=== PATIENT | female | born 1980 | race Caucasian/White ===

== ENCOUNTER 2020-02-22 12:13 | Emergency (ER) | payer OTHER, SELFPAY ==
--- NOTE | 2020-02-22 13:05 | XR_ITS ---
EXAMINATION: XR KNEE, LEFT CLINICAL INFORMATION: Left knee pain. COMPARISON: 12/28/15. TECHNIQUE: Four views of the left knee. FINDINGS: Bones and soft tissues are normal. No fracture or joint effusion. Alignment is anatomic. Joint spaces are well maintained. No abnormal soft tissue calcification. XR/XR knee LT 4V IMPRESSION: Normal left knee.
[2020-02-22 13:12] VITALS: BP 147/80; PULSE 81; RESP 16; TEMP 36.7; O2SAT 100
--- NOTE | 2020-02-22 13:18 | ED_ITS ---
HPI - Extremity Injury (Lower) General Chief Complaint: Extremity Injury, Lower Stated Complaint: knee pain Time Seen by Provider: 02/22/20 12:54 Source: patient Mode of arrival: ambulatory History of Present Illness HPI Narrative: 39-year-old female past medical history of hypertension on metoprolol presenting to emergency department with left knee pain since yesterday. Patient states she was caring a load of laundry down her cellar [address] [place] when she missed the last step and her body and knee twisted. She did hit the wall with denies falling down otherwise. She denies head injury or LOC. He states he has been elevating and icing her leg but continues to have pain. She took Motrin this morning. She states she feels a pulsating pain in her knee. Pain is mostly to the lateral aspect of her anterior knee. She denies previous symptoms. She denies history of DVT. She is able to ambulate but with a limping gait. Onset (ago): day(s) (1) Related Data Previous Rx's Medication Instructions Recorded ibuprofen 600 mg PO Q6H PRN 5 Days #20 tab 02/22/20 Allergies Allergy/AdvReac Type Severity Reaction Status Date / Time levofloxacin [From LEVAQUIN] Allergy Unknown HIVES Unverified 11/07/19 15:11 morphine [MORPHINE] Allergy Unknown NAUSEA & Unverified 11/07/19 15:11 VOMITING Lavoclen-4 Allergy Unknown Uncoded 03/23/11 00:00 Lavoclen-4 Acne Wash Allergy Unknown Uncoded 01/20/16 00:00 morphine sulfate Allergy Unknown Uncoded 03/23/11 00:00 Review of Systems Constitutional: Constitutional: Denies fever(s) and Denies frequent falls Eyes: Eyes: Reports no additional eye complaints ENT: Denies dizziness and Denies sore throat Cardiovascular: Cardiovascular: Denies dyspnea Respiratory: Respiratory: Denies dyspnea Gastrointestinal: Gastrointestinal: Denies abdominal pain and Denies vomiting Genitourinary: Genitourinary: Reports no additional female genitourinary complaints Comments: No urinary complaints Musculoskeletal: Comments: Left knee pain Neurologic: Denies dizziness and Denies frequent falls Hematologic/Lymphatic: Hematologic/Lymphatic: Denies easy bleeding Allergic/Immunologic: Allergic/Immunologic: Reports no additional allergic/immunologic complaints PMFSH Past Medical History Medical History HTN (hypertension) Surgical History Delivery by section Social History Social History (Updated 02/22/20 @ 13:21 by STERLING Conrad) Smoking Status: Never smoker Advance Directives: No Advance Directives Information Provided: No Physical Exam Vital Signs: Vital Signs: Last Vital Signs Temp 98.1 F 02/22/20 13:12 Pulse 81 02/22/20 13:12 Resp 16 02/22/20 13:12 BP 147/80 H 02/22/20 13:12 Pulse Ox 100 02/22/20 13:12 Body Mass Index 30.0 Const: Other: Sitting upright in the stretcher Orientation/consciousness: patient oriented x3 HENMT: Head: Yes atraumatic Eyes: Pupils: Equal, round and reactive pupils present Neck: Neck: Yes trachea midline and Yes supple Resp: Effort & Inspection: normal respiratory effort and able to speak in complete sentences Cardio: Rate: regular rate GI: Inspection: No distended Back/Spine/Pelvis: Other: Normal range of motion Skin: Other: Warm and intact Neuro: General: patient oriented x3 Cranial nerves: Yes Equal, round and reactive pupils present Extrem: Other: Left lower extremity-positive pedal pulses, full range of motion of digits, ankle, hip, limited range of motion of the knee secondary to pain but is able to flex and fully extend otherwise, no significant swelling noted some ecchymosis noted to the superior aspect of her anterior knee, no calf tenderness or swelling, no erythema or warmth, no rashes or lesions, no fluctuance, compartment soft, neurovascularly intact Psych: Appearance: well kempt Course Course Course Narrative: Xray negative. WIll give knee immobilizer, crutches and ortho follow up. Continue NSAIDs for pain. Return precautions will be provided. MDM - Extremity Injury (Lower) MDM Narrative Medical decision making narrative: 39-year-old female presenting to emergency department with knee pain Vital stable, nontoxic appearing, hemodynamically stable Will plan for plain film of her knee to rule out underlying bony injury. She has no evidence of compartment syndrome. No erythema or warmth to suggest septic joint or gout. She has prominent necrotizing fasciitis. Low concern for DVT as her limbs are symmetrical and she does not have calf swelling or tenderness. No evidence of tendon rupture. She could have a ligamentous strain. Since she took Motrin this morning will give her Tylenol in the ER as she is driving home do not want to give her narcotics. Discharge Plan Discharge Clinical Impression: Left knee sprain Patient Disposition: Home, Self-Care Instructions: Knee Sprain (ED), R.I.C.E. Treatment (ED) Additional Instructions: Your xray is normal. Please return to the emergency department if her symptoms worsen, worsening pain, leg swelling, calf pain, difficulty walking, numbness, weakness, loss of balance, or any other concerning symptoms. Please follow-up with orthopedist in a week if your symptoms do not improve. you may use the knee immobilizer when moving around, when you are at home remove it and elevate your leg, place ice to help with the pain. Use crutches for weight-bearing as tolerated. you may continue taking Tylenol and Motrin for pain every 6 hours as directed. Prescriptions: New ibuprofen 600 mg tablet 600 mg PO Q6H PRN (Reason: pain) 5 Days Qty: 20 RF: 0 Referrals: Rafa Vaca MD [Physician] - 1 week Interventions: ED Discharge Assessment Last Done: 02/22/20 14:35 Discharge Date/Time: 02/22/20 14:25
[2020-02-22] MEDS: Acetaminophen 325 MG TABLET 650 MG PO (13:25)
== END 2020-02-22 14:25 | disposition home or self-care (01) ==
PROVIDERS: Emergency Provider Emergency Medicine; PCP Internal Medicine
DX: S83.92XA Sprain of unspecified site of left knee, initial encounter (principal); X50.1XXA Overexertion from prolonged static or awkward postures, initial encounter; I10 Essential (primary) hypertension; Y93.E2 Activity, laundry; Y92.018 Other place in single-family (private) house as the place of occurrence of the external cause; Y99.9 Unspecified external cause status
CPT/HCPCS: 73564; 99283

== ENCOUNTER 2020-02-24 08:30 | Outpatient (REF) | payer OTHER, SELFPAY ==
[2020-02-24 08:50] LABS: COVID-19 Test Negative (Negative)
== END 2020-02-24 08:31 | disposition home or self-care (01) ==
LOC: HO.EMPCOV 08:30
PROVIDERS: Visit Provider Internal Medicine
DX: Z20.822 Contact with and (suspected) exposure to COVID-19 (principal)
CPT/HCPCS: 36415; 87635; C9803

== ENCOUNTER 2020-02-27 10:19 | Outpatient (REF) | payer OTHER, SELFPAY ==
[2020-02-27 10:36] LABS: COVID-19 Test Negative (Negative)
== END 2020-02-27 10:20 | disposition home or self-care (01) ==
LOC: HO.EMPCOV 10:19
PROVIDERS: Visit Provider Internal Medicine
DX: Z20.828 Contact with and (suspected) exposure to other viral communicable diseases (principal)
CPT/HCPCS: 36415; 87635; C9803

== ENCOUNTER 2021-04-13 16:02 | Outpatient (REF) | payer OTHER, SELFPAY ==
--- NOTE | ~2021-04-13 | MM_ITS ---
EXAMINATION: MM SCREENING DIGITAL BREAST TOMOSYNTHESIS, BILATERAL CLINICAL INFORMATION: Screening. Asymptomatic. Age 41. No known family history breast cancer. The lifetime risk of breast cancer based on the Tyrer-Cuzick Model is 8%. COMPARISON: Mammography: 03/02/2011 (baseline). TECHNIQUE: Digital breast tomosynthesis is performed in both the craniocaudal and mediolateral oblique views along with computer-aided detection (CAD). Synthesized 2D images are generated from the tomosynthesis. FINDINGS: There are scattered areas of fibroglandular density (ACR BI-RADS breast composition Category b). There are no significant masses, abnormal calcifications, or other abnormalities. There is no significant change from remote prior exam. The axilla and skin contours are unremarkable. MM/MM tomosynthesis screening BI IMPRESSION: No mammographic evidence of malignancy. ASSESSMENT: BI-RADS 1: Negative RECOMMENDATION: Routine annual mammography screening. This patient's information was entered into a reminder system with a target due date for their next mammogram.
== END 2021-04-13 16:03 | disposition home or self-care (01) ==
LOC: HO.MAMMO 16:02
PROVIDERS: Visit Provider Internal Medicine
DX: Z12.31 Encounter for screening mammogram for malignant neoplasm of breast (principal)
CPT/HCPCS: 77063; 77067

== ENCOUNTER 2022-01-18 14:28 | Outpatient (REF) | payer OTHER, SELFPAY ==
[2022-01-19 10:23] LABS: BV Int Neg Control Negative (Negative); BV Int Pos Control Positive (Positive)
[2022-01-19 11:04] LABS: CT PCR NOT DETECTED (Not Detect.); NG PCR NOT DETECTED (Not Detect.)
[2022-01-20 19:59] LABS: HPV mRNA E6/E7 rflx Not Detected (Not Detected)
== END 2022-01-18 14:29 | disposition home or self-care (01) ==
LOC: HO.LNP 14:28
PROVIDERS: Visit Provider Advanced Practice Midwife
DX: Z01.419 Encounter for gynecological examination (general) (routine) without abnormal findings (principal)
CPT/HCPCS: 87480; 87491; 87510; 87591; 87624; 87660; 88142

== ENCOUNTER 2022-08-04 14:17 | Outpatient (REF) | payer OTHER, SELFPAY ==
--- NOTE | ~2022-08-04 | XR_ITS ---
EXAMINATION: XR KNEE, LEFT CLINICAL INFORMATION: Left knee pain. COMPARISON: None available. TECHNIQUE: Four views of the left knee. FINDINGS: Bones and soft tissues are normal. No fracture or joint effusion. Alignment is anatomic. Joint spaces are well maintained. No abnormal soft tissue calcification. XR/XR knee LT 4V IMPRESSION: Normal left knee.
== END 2022-08-04 14:18 | disposition home or self-care (01) ==
LOC: HO.XRAY 14:17
PROVIDERS: PCP Internal Medicine; Visit Provider Internal Medicine
DX: M25.562 Pain in left knee (principal)
CPT/HCPCS: 73564

== ENCOUNTER 2022-09-22 09:36 | Outpatient (AMB) | payer OTHER, SELFPAY ==
--- NOTE | 2022-09-22 09:37 | MHC.OFFVIS ---
Intake Vital Signs 09/22/22 09:38 Height 5 ft 4 in Weight 197 lb 6 oz BMI 33.9 BP 128/82 Blood Pressure Location Lt brachial Position Sitting Intake Visit Reasons: Vaginal lump Allergies levofloxacin [From LEVAQUIN] Allergy (Unknown, Verified 09/22/22 09:39) HIVES morphine [MORPHINE] Allergy (Unknown, Verified 09/22/22 09:39) NAUSEA & VOMITING Lavoclen-4 Allergy (Unknown, Uncoded 09/22/22 09:39) Unknown Lavoclen-4 Acne Wash Allergy (Unknown, Uncoded 09/22/22 09:39) Unknown morphine sulfate Allergy (Unknown, Uncoded 09/22/22 09:39) Unknown Medication List - Last Reconciled 09/22/22 by Lizbeth Campbell CNM ibuprofen 600 mg PO Q6H PRN 5 days metoprolol succinate ER 25 mg PO DAILY sertraline 50 mg PO DAILY tramadol 50 mg PO Q4H PRN Is last menstrual period known: Yes Last menstrual period: 09/19/22 HPI Vaginal lump HPI Details Patient is here to check out a vaginal lump that she has had for about 4 weeks. It isn't particularly painful it was not there before she is not worried about STDs it is not draining. She does normally do waxing but she did not be recently because of this. She can not think of any particular irritation and does not think she cut herself with toilet paper or anything like that. [facility] Medical History Anxiety HTN (hypertension) Surgical History Delivery by section History of endometrial ablation Hx of cholecystectomy Social History Alcohol intake: current Alcohol intake frequency: holidays/special occasions only Patient Tobacco Use Status: Never used Tobacco Female Reproductive History Menstrual Age of Menarche: 12 Duration of menses: 3-5 days Date of last menstrual period: 09/19/22 control method: none Total pregnancies: 4 Full term: 3 Ab spontaneous: 1 Date of last pap smear: 01/19/22 History of abnormal pap smear: Yes History of STI: No Physical Exam Vital Signs: Last Vital Signs BP 128/82 09/22/22 09:38 BMI result Body Mass Index 33.9 Other: External exam of full the no obvious lesions subcutaneously on left labia majora there is a pea-sized swelling that is somewhat fluctuant and when the superficial tissue is moved it is made clear that the cyst underneath is somewhat fluid filled and occasionally blanches if the skin as the skin is moved in occasionally reddened so. It is consistent with an inflamed hair follicle though it does not appear to be infected and is nontender. Discussed the common experience of folliculitis due to introduction of bacteria along the hair follicle. I recommend trying not to irritated or squeeze it but use warm soaks and if it does become very inflamed and infected she may need a course of antibiotics but hopefully that will not happen. If it does pop I recommend gentle cleansing with half-strength hydrogen peroxide and perhaps a little dab of triple antibiotic appointment. I do not think it is of major concern and is a common folliculitis that is not currently infected but more indolent. She is welcome to a follow-up appointment with 1 of the other providers to would be able to do a biopsy if it was still present in about a month so she may schedule that. I showed it to her with a mirror and explained why I thought that was just irritation of the hair follicle. Assessment & Plan Assessment & Plan (1) Folliculitis: Code(s): L73.9 - Follicular disorder, unspecified Plan External exam of full the no obvious lesions subcutaneously on left labia majora there is a pea-sized swelling that is somewhat fluctuant and when the superficial tissue is moved it is made clear that the cyst underneath is somewhat fluid filled and occasionally blanches if the skin as the skin is moved in occasionally reddened so. It is consistent with an inflamed hair follicle though it does not appear to be infected and is nontender. Discussed the common experience of folliculitis due to introduction of bacteria along the hair follicle. I recommend trying not to irritated or squeeze it but use warm soaks and if it does become very inflamed and infected she may need a course of antibiotics but hopefully that will not happen. If it does pop I recommend gentle cleansing with half-strength hydrogen peroxide and perhaps a little dab of triple antibiotic appointment. I do not think it is of major concern and is a common folliculitis that is not currently infected but more indolent. She is welcome to a follow-up appointment with 1 of the other providers to would be able to do a biopsy if it was still present in about a month so she may schedule that. I showed it to her with a mirror and explained why I thought that was just irritation of the hair follicle. Coding Level of Care Code Est Pt Level 3 (44249) Diagnoses Folliculitis L73.9
[2022-09-22 09:38] VITALS: BP 128/82; BMI 33.9
--- OUTSIDE RECORDS SUMMARY | 2022-09-22 09:39 | XMS_ITS | Continuity of Care Document ---
Author Name Unknown Organization [facility] Address [address] [place] [address], [address] [place] [address]- Care Team Providers Care Combat Systems Operator Mine Warfare Name Role Phone Nilson Smith MD Primary Care Physician Encounter [facility] Date(s): 04/15/21 - 04/22/21 [facility] [address] [place] [address], [address] [place], [place] [address] Attending Physician: Bri Birch MD Referring Physician: Nilson Smith MD
--- OUTSIDE RECORDS SUMMARY | 2022-09-22 09:39 | XMS_ITS | Continuity of Care Document ---
Author Name Unknown Organization [facility] Address [address] [place] [address], [address] [place] [address]- Care Team Providers Care Shanker Out Name Role Phone Nilson Smith MD Primary Care Physician Encounter [facility] Date(s): 04/15/21 - 05/15/21 [facility] [address] [place] [address], [address] [place], [place] [address] Attending Physician: Jeb Ly Admitting Physician: Jeb Ly Referring Physician: Jeb Ly
--- OUTSIDE RECORDS SUMMARY | 2022-09-22 09:39 | XMS_ITS | Continuity of Care Document ---
Author Name Unknown Organization [facility] Address [address] [place] [address], [address] [place] [address]- Care Team Providers Care Camper Assembler Name Role Phone Nilson Smith MD Primary Care Physician Encounter [facility] Date(s): 03/30/21 - 04/29/21 [facility] [address] [place] [address], [address] [place], [place] [address]
== END 2022-09-22 14:14 | disposition home or self-care (01) ==
LOC: HO.HWSM 09:36
PROVIDERS: PCP Internal Medicine; Visit Provider Advanced Practice Midwife
DX: L73.9 Follicular disorder, unspecified (principal)
CPT/HCPCS: 99213

== ENCOUNTER → 2022-09-22 09:36 | Outpatient (BNVA) | payer OTHER, SELFPAY | PROVIDERS: PCP Internal Medicine; Visit Provider Advanced Practice Midwife ==

== ENCOUNTER 2023-04-12 13:38 | Outpatient (REF) | payer OTHER, SELFPAY ==
--- NOTE | ~2023-04-12 | MM_ITS ---
EXAMINATION: MM SCREENING DIGITAL BREAST TOMOSYNTHESIS, BILATERAL CLINICAL INFORMATION: Screening. Asymptomatic. COMPARISON: Mammography: This study is compared with prior exams dating back to 2012. TECHNIQUE: Digital breast tomosynthesis is performed in both the craniocaudal and mediolateral oblique views along with computer-aided detection (CAD). Synthesized 2D images are generated from the tomosynthesis. FINDINGS: The breasts are heterogeneously dense, which may obscure small masses (ACR BI-RADS breast composition Category c). There are no significant masses, abnormal calcifications, or other abnormalities. MM/MM tomosynthesis screening BI IMPRESSION: No mammographic evidence of malignancy. ASSESSMENT: BI-RADS BI-RADS 1 - Negative RECOMMENDATION: Routine annual mammography screening. 1 year F/U This examination should not preclude the clinical evaluation of a suspicious palpable abnormality. This patient's information was entered into a reminder system with a target due date for their next mammogram.
== END 2023-04-12 13:39 | disposition home or self-care (01) ==
LOC: HO.MAMMO 13:38
PROVIDERS: PCP Internal Medicine; Visit Provider Internal Medicine
DX: Z12.31 Encounter for screening mammogram for malignant neoplasm of breast (principal)
CPT/HCPCS: 77063; 77067

== ENCOUNTER → 2023-04-12 13:45 | Outpatient (BNV) | payer OTHER, SELFPAY | PROVIDERS: PCP Internal Medicine; Visit Provider Radiology Diagnostic Radiology | DX: Z12.31 Encounter for screening mammogram for malignant neoplasm of breast (principal) | CPT/HCPCS: 77063; 77067 ==

== ENCOUNTER 2024-01-15 13:08 | Outpatient (REF) | payer OTHER, SELFPAY ==
[2024-01-15 13:25] LABS: MANUAL DIFF FLAG NO
[2024-01-15 14:07] LABS: Basophils Percent Auto 0.4 % (0-2); Eosinophils Absolute Auto 0.1 X10*3/uL (0.0-0.4); Eosinophils Percent Auto 1.5 % (0-4); Hematocrit 38.7 % (37.0-47.0); Hemoglobin 13.2 g/dl (12.0-16.0); Imm Gran Abs Auto 0.01 X10*3/uL (0.00-0.03); Imm Gran Pct Auto 0.1 % (0.0-0.4); Lymphocytes Absolute Auto 1.4 X10*3/uL (1.2-4.9); Lymphocytes Percent Auto 19.6 % (20-40); Mean Corpuscular HGB Conc 34.1 g/dl (31.0-35.0); Mean Corpuscular Hemoglobin 29.9 pg (27.0-33.0); Mean Corpuscular Volume 87.6 fL (80.0-98.0); Mean Platelet Volume 8.8 fL (9.4-12.3); Monocytes Absolute Auto 0.4 X10*3/uL (0.1-1.2); Monocytes Percent Auto 5.9 % (2-11); Neutrophils Absolute Auto 5.3 x10*3/uL (2.0-8.3); Neutrophils Percent Auto 72.5 % (45-73); Platelet Count 295 X10*3/uL (160-400); Red Blood Count 4.42 X10*6/uL (4.20-5.50); Red Cell Distribution Width 11.9 % (11.0-16.0); White Blood Count 7.3 X10*3/uL (4.8-10.8)
[2024-01-15 15:08] LABS: Alanine Aminotransferase 11 U/L (0-31); Albumin Level 3.9 g/dL (3.5-5.0); Anion Gap 15 (12-20); Aspartate Amino Transferase 18 U/L (5-31); Bilirubin Total 0.5 mg/dL (0.0-1.0); Blood Urea Nitrogen 14 mg/dL (9-16); Calcium 9.3 mg/dL (8.4-10.2); Carbon Dioxide 20 mmol/L (22-29); Chloride 107 mmol/L (96-108); Cholesterol 192 mg/dL (<200); Estimated Glomerular Filt Rate > 60; Glucose Random 98 mg/dL (60-115); HDL Cholesterol 52 mg/dL (>40); LDL Cholesterol Calculated 118 mg/dL (<100); Potassium 3.8 mmol/L (3.3-5.1); Sodium 138 mmol/L (135-145); Total Protein 7.2 g/dL (6.5-8.0); Triglycerides 112 mg/dL (<150)
[2024-01-15 15:50] LABS: Alkaline Phosphatase 94 U/L (39-117)
== END 2024-01-15 13:09 | disposition home or self-care (01) ==
LOC: HO.LAB 13:08
PROVIDERS: PCP Internal Medicine; Visit Provider Internal Medicine
DX: E78.2 Mixed hyperlipidemia (principal); I10 Essential (primary) hypertension
CPT/HCPCS: 36415; 80053; 80061; 85025

== ENCOUNTER → 2024-04-18 13:30 | Outpatient (BNV) | payer OTHER, SELFPAY | PROVIDERS: PCP Internal Medicine; Visit Provider Internal Medicine | DX: Z12.31 Encounter for screening mammogram for malignant neoplasm of breast (principal) | CPT/HCPCS: 77063; 77067 ==

== ENCOUNTER 2024-04-18 13:40 | Outpatient (REF) | payer OTHER, SELFPAY ==
--- OUTSIDE RECORDS SUMMARY | 2024-04-18 16:26 | XMS_ITS | Clinical Summary ---
Author Organization [address] Address [address] [place] [phone] Phone Care Team Providers Care Blow Molder Name Role Phone Unavailable Primary Care Provider Unavailabl e Social History Tobacco Use Types Packs/Day Years Used Date Smoking Tobacco: Never Assessed Comments Unknown Sex and Gender Information Value Date Recorded Sex Assigned at Not on file Legal Sex Female 9:35 AM EST Gender Identity Not on file Sexual Orientation Not on file Last Filed Vital Signs Vital Sign Reading Time Taken Comments Blood Pressure 101/64 06/06/2023 1:11 PM EDT Pulse 66 06/06/2023 1:11 PM EDT Temperature - - Respiratory Rate - - Oxygen Saturation - - Inhaled Oxygen Concentration - - Weight 85.3 kg (188 lb) 06/06/2023 1:11 PM EDT Height 157.5 cm (5' 2 ) 06/06/2023 1:11 PM EDT Body Mass Index 34.39 06/06/2023 1:11 PM EDT Plan of Treatment Health Maintenance Due Date Last Done Comments Breast Cancer Screening 1980 DTaP,Tdap,and Td Vaccines (1 - Tdap) 1999 Hepatitis B Vaccines (1 of 3 - 19+ 3-dose series) 1999 Cervical Cancer Screening: P ap Smear 2001 COVID-19 Vaccine ( - 2023-2 5 season) 2023 Influenza Vaccine (#1) 2023 Depression Screening 01/16/2024 HIV Screening 01/16/2024 Hepatitis C Screening 01/16/2024 Social Influencers of Health Screening 01/16/2024 HIB Vaccines Aged Out No longer eligi ble based on patient's age to complete this topic HPV Vaccines Aged Out No longer eligi ble based on patient's age to complete this topic Hepatitis A Vaccines Aged Out No long er eligible based on patient's age to complete this topic IPV Vaccines Aged Out No longer eligi ble based on patient's age to complete this topic MMR Vaccines Aged Out No longer eligi ble based on patient's age to complete this topic Meningococcal ACWY Vaccine Aged Out N o longer eligible based on patient's age to complete this topic Meningococcal B Vacine Aged Out No lo nger eligible based on patient's age to complete this topic Pneumococcal Vaccine: Pediat rics (0 to 5 Years) and At-Risk Patients (6 to 64 Years) Aged Out No longer eligible b ased on patient's age to complete this topic RSV Immunization Patients Un josep 20 months Aged Out No longer eligible b ased on patient's age to complete this topic Varicella Vaccines Aged Out No longer eligible based on patient's age to complete this topic Insurance
--- OUTSIDE RECORDS SUMMARY | 2024-04-18 16:26 | XMS_ITS | Patient Health Record ---
Author Organization [facility] Address [address] [place] [address] Care Team Providers Care Gas Load Dispatcher Name Role Phone Nilson Smith MD Primary Care Provider UnavailBaljit Salamanca Unavailable [phone] Allergies Allergen (clinical drug ingredient) Drug/Non Drug Allergy documented on EMR Reaction Allergy Type Onset Date Status ciprofloxacin Cipro Unknown Drug Allergy Act hina Levaquin Unknown Drug Allergy Active morphine Morphine Unknown Drug Allergy Active Reason For Referral No Information Medications Medication SIG (Take, Route, Frequency, Duration) Notes Start Date End Date Status Metoprolol Tartrate Active CeleXA 20 MG 1 tablet Orally Once a day for 30 day(s) Active amLODIPine Besylate 10 MG 1 tablet Orall y Once a day for 30 day(s) Active Problems Problem Type SNOMED Code ICD Code Onset Dates Problem Status W/U Status Risk Notes Problem Verruca 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) Verruca Plantaris (078.19) Active confirmed Problem Pain in limb (09268602) Pain in Limb (729.5) Active confirmed Plan Of Treatment Pending Test Test Name Order Date , -14 07/31/2012 Insurance Providers Payer Name Payer Address Payer Phone Subscriber Number Group Number Insured Name Patient Relationship to Insured Coverage Start Date Coverage End Date [facility] [address] [place] [address] [id number] [place], Good Spouse - patient is the spouse of the insured Medical (General) History Medical History History ICD Code gall bladder problems chicken pox hypertension anxiety chicken pox hypertension gall bladder problems Surgical History Surgery Date(Month/Year) section section cholecystectomy cholecystectomy
--- OUTSIDE RECORDS SUMMARY | 2024-04-18 16:26 | XMS_ITS | Data Portability ---
Author Organization [facility]geons [facility], [employer] Address [address] [place] [address] Care Team Providers Care Director Of Content And Programming Name Role Phone ALY LEHMAN Primary Care Provider Assessment Encounter Date Assessment Date Assessment LastModified by Organization Details LastModified Time 04/04/2024 04/04/2024 I am seeing the patient today under the supervision of donny who was available but who did not see the patient. HPI: Patient presents today regarding their L knee. Works as an ER nurse locking catching mechanical symptoms They have had difficulty up and down stairs sitting standing. Problems ambulating. Lggh-rcf-opzgxzw medications are helping somewhat but not significantly. Pain is constant aching sometimes sharp pain with giving out sensations. Past family, medical, social history and review of systems has been reviewed, updated and is located in the patient? s chart. Examination: The patient is well appearing and in no apparent distress. Alert and oriented x3. Gait is symmetric. Examination of the L knee reveals no evidence of any edema, erythema, or warmth. no Deformity. Range of motion of the knee limited with mild discomfort at the end ranges. Mild effusion. Does have some tenderness to palpation about the medial hemijoint line. No tenderness to palpation about the lateral hemijoint line. Patellofemoral crepitus is noted. mild lateral ligamentous laxity. Negative Savita? s. Calf is supple and nontender. Neurovascularly intact distally. 4 X-ray views of the knee were independently reviewed today showed n No fractures, no deformities, no DJD noted on todays exam Impression left knee medial meniscus tear Plan: We discussed the role of conservative management including medications, physical therapy, injection and bracing. At this point the patient was to proceed with MRI to confirm medial meniscus tear given her continued mechanical symptoms despite conservative management NSAIDs. [email or web address] Not available 04/04/2024 16:35:11 Plan of Treatment Reminders Order Date Submit Date Provider Last Modified By Organization Details Last Modified Time Details Appointments RECHECK 15 2024 10:45A M Elliot Verdin PA-C Not available Not available Not available Lab None recorded . Referral None recorded . Procedures None recorded . Surgeries None recorded . Imaging XR, knee, 3 view - rm 314 3v left knee 2024 025 [email or web address] [facility] [address], [address], [place], [address], 04/05/2024 06:24:00 Medication Orders None recorded . Patient TargetsNo targets recorded. Patient InstructionsNo instructions recorded. Reason for Referral None Reported. Results Created Date Observation Date Name Description Value Unit Range Abnormal Flag Note LastModifiedBy Organization Detail LastModifiedTime 04/04/1904/04/2024 XR, knee, 3 view http:/ [email or web address] ?Encry pted=s hAaTro YD8dLq bEUv6g %2BXZw aYqtaq 0bqfl% 2Fg9IQ a4ajBk vP9nXo QUaueC m3YtLR FvZlgJ JJ8mAn HZtai3 3i8122 AC0Kqb HSFVaO nKiQtr MwF INTERFACE [facility] [address], [place], [address], 04/04/2024 16:31:42 04/18/19 25 04/17/2024 MRI, knee, w/o contr ast [facility] Access ion Number : [id number] Jerome villanueva Name: Angie Cleveland er Medica l Record Number : [id number] Date of : 1980 Date of Exam: 2024 Referr ing Physic brandon: Elliot Verdin [facility] ([facility]) [address], [address] [facility], [place] [address] Exam: MR Knee (C-) CPT 57794 - Left Room Descri ption: [facility] Verio 3.0T MR Knee (C-) CPT 64661 CLINIC AL INDICA TION: Reason For Exam: M23.92 - 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 COMPAR ASHLEY: None FINDIN GS: Joint effusi on: No joint effusi on is presen t. Edema signal seen within the frank ceps fat pad. Menisc i: Medial menisc us: intact Latera l menisc us: Intact discoi d menisc us Tendon s and ligame nts: ACL and PCL are intact . MCL, LCL comple x and poplit eus insert ion are intact . Mild frank ceps tendin osis. Extens or mechan ism is otherw ise intact . Bone and articu lar cartil age: Alignm ent is within normal limits . No eviden ce of fractu re, bone marrow contus ion or focal bone marrow signal abnorm ality. The articu lar cartil age is normal in thickn ess. No focal defect s are seen. IMPRES SOFI: Mild frank ceps tendin osis. Edema signal within the frank ceps fat pad which can be seen in the settin g of fat pad imping ement Discoi d latera l menisc us. No eviden ce of menisc al tear. Electr onical ly Signed By: Ruddy Ochoa rd, MD [facility] [address], [place], [address], 04/18/2024 10:36:38 Result Notes None recorded. Problems Name Problem SNOMED Code Status Onset Date Resolution Date Notes Provider Name and Address Organization Details Recorded Time Pain of left knee joint 628024891312497 Active 2023 MARGOTH buitrago [place] - [facility] 09:30:29 Problem Notes None recorded. Procedures Surgical History None recorded. Imaging Results Imaging Date Name Status LastModified by Organiz ation Details LastModified Time 04/04/2024 XR, knee, 3 view completed INTERFACE [facility] [address], [place], [address], 04/04/2024 16:31:42 04/17/2024 MRI, knee, w/o contrast active [facility] [address], [place], [address], 04/18/2024 10:36:38 Procedure Notes None recorded. Medical Equipment None Reported. Allergies Allergen ID Allergen Name Allergen Category Reaction Reaction Severity Criticality Documentation Date Start Date Code Code System Note Provider Name and Address Organization Details Recorded Time 13410224 Levaquin medicatio n rash moderate Not available 04/04/2024 77501 2 RxNorm Dc buitrago [place] - [facility] 16:21:52 Medications Name Sig Start Date Stop Date Status Note LastModified by Organization Details LastModified Time w-blossom crm Apply a pea sized amount to clitoral area 30 minutes prior to need. active Not Available Not Available No t Available dhea 25mg capsule take 1 capsule by mouth daily active Not Available Not Available No t Available venlafaxine ER 37.5 mg capsule,ext ended release 24 hr TAKE 1 CAPSULE BY MOUTH EVERY DAY WITH FOOD SWALLOW WHOLE active Not Available Not Available No t Available venlafaxine ER 75 mg capsule,ext ended release 24 hr TAKE 1 CAPSULE BY MOUTH EVERY DAY active Not Available Not Available No t Available dextroamphe tamine-amph etamine 10 mg tablet TAKE ONE IN THE EARLY AFTERNOON DIRECTED( ONLY WHEN NEEDED) active Not Available Not Available No t Available clonazepam 0.5 mg tablet TAKE 1 TABLET BY MOUTH TWICE A DAY NEEDED FOR ANXIEY/PA TELLY active Not Available Not Available No t Available sertraline 100 mg tablet TAKE 2 TABLETS BY MOUTH EVERY DAY active Not Available Not Available No t Available clonazepam 1 mg tablet TAKE 1/2 TABLET 2-3 TIMES DAILY NEEDED- GOAL TO CONTINUE TO WEAN DOWN 04/04 completed Not Available Not Available Not Available tramadol 50 mg tablet TAKE 1 TO 2 TABLETS BY MOUTH EVERY 8 HOURS FOR 20 DAYS NEEDED active Not Available Not Available No t Available clonidine HCl 0.2 mg tablet TAKE 1 TABLET BY MOUTH THREE TIMES A DAY NEEDED FOR 7 DAYS 04/04 completed Not Available Not Available Not Available lorazepam 0.5 mg tablet TAKE 1 TABLET BY MOUTH AT BEDTIME NEEDED DIRECTED FOR 30 DAYS active Not Available Not Available No t Available dextroamphe tamine-amph etamine ER 20 mg 24hr capsule,ext end release TAKE 1 CAPSULE BY MOUTH EVERY MORNING (SWALLOW WHOLE) active Not Available Not Available No t Available progesteron e micronized 200 mg capsule Take one capsule by mouth at bedtime active Not Available Not Available No t Available dextroamphe tamine-amph etamine 15 mg tablet TAKE 1 TABLET BY MOUTH EVERY DAY 04/04 completed Not Available Not Available Not Available docusate sodium 100 mg capsule TAKE 1 CAPSULE BY MOUTH TWICE A DAY NEEDED active Not Available Not Available No t Available estradiol 2 mg tablet Take 1 tablet by mouth daily active Not Available Not Available No t Available metoprolol succinate ER 25 mg tablet,exte nded release 24 hr TAKE 1 TABLET BY MOUTH EVERY DAY active Not Available Not Available No t Available sertraline 50 mg tablet TAKE 1 TABLET BY MOUTH DAILY active Not Available Not Available No t Available dicyclomine 10 mg capsule TAKE 1 CAPSULE BY MOUTH THREE TIMES A DAY FOR 7 DAYS active Not Available Not Available No t Available dextroamphe tamine-amph etamine ER 15 mg 24hr capsule,ext end release TAKE 1 CAPSULE BY MOUTH ONCE DAILY IN THE MORNING UPON AWAKENING 04/04 completed Not Available Not Available Not Available escitalopra m 10 mg tablet TAKE 1 TABLET BY MOUTH EVERY DAY active Not Available Not Available No t Available buprenorphi ne 8 mg-naloxone [address] 1 FILM UNDER THE TONGUE TWICE A DAY FOR 28 DAYS 04/04 completed Not Available Not Available Not Available Vitals Date Recorded Body height Body mass index (BMI) Body weight Provider Name and Address Organization Details Last Updated DateTime 04/04/2024 162.56 cm 29.2 kg/m2 34139.7 g Dc Barnhart [facility] 04/04/2024 16:22:09 Social History Question Answer Notes LastModified by Organizat ion Details LastModified Time Tobacco Smoking Status Former Smoker SEAN Clifford [facility] 04/04/2024 16:21:54 How Many Times Per Week Do You Consume Alcohol? Less Than 1 Time Per Week [email or web address] Information not available 04/04/2024 Do You Or Have You Ever Used E-cigarettes Or Vape? Never Used Electronic Cigarettes [email or web address] Information not available 04/04/2024 When Did You Quit Smoking? 11-15yearssinc elastcigarette [email or web address] Information not available 04/04/2024 What Is Your Relationship Status? Other [email or web address] Information not available 04/04/2024 Do You Use Any Illicit Or Recreational Drugs? No [email or web address] Information not available 04/04/2024 Do You Or Have You Ever Used Any Other Forms Of Tobacco Or Nicotine? No [email or web address] Information not available 04/04/2024 Sex: Unknown Functional Status None recorded. Mental Status None recorded. Family History Nothing Reported. Medical History Condition Response Hypertension Y Gynecological HistoryNo gynecological history recorded. Obstetrics History GPAL:G 0 P 0 0 0 0 Past Encounters Encounter ID Performer Location Encounter Start Date Encounter Closed Date Diagnosis/Indication Diagnosis SNOMED-CT Code Diagnosis ICD10 Code Diagnosis Note [id number] [facility] [address] [place] [address] 04/04/2024 16:18:55 04/04/2024 16:35:31 Pain of left knee joint 7051204990 78981 M25.562 Health Concerns Section Related Observation LastModified by Organization Detai ls LastModified Time None Recorded Concern Status LastModified by Organization Details LastModified Time None Recorded Advance Directives Directive None Recorded Payers Encounter Date Sequence Insurance Name Policy Number Policy Del Valle Covered Member ID Del Valle Member ID Guarantor Name 04/04/2024 1 [facility] [id number] Tessa Motley [id number] Tessa Motley OBGyn Episode No OBEpisode recorded.
--- OUTSIDE RECORDS SUMMARY | 2024-04-18 16:26 | XMS_ITS | Encounter Summary ---
Author Organization [facility] Address [address] [place] [address] Care Team Providers Care Medical Radiation Dosimetrist Name Role Phone Unavailable Primary Care Provider Unavailabl e Encounter Details Date Type Department Care Team (Late st Contact Info) Description 08/31/2017 Scanned Document [facility] [address] [id number] Mahi Huang, RN [address] [address] Social History Tobacco Use Types Packs/Day Years Used Date Smoking Tobacco: Never Assessed Sex and Gender Information Value Date Recorded Sex Assigned at Not on file Gender Identity Not on file Sexual Orientation Not on file documented as of this encounter Plan of Treatment Not on file documented as of this encounter Visit Diagnoses Not on filedocumented in this encounter
--- OUTSIDE RECORDS SUMMARY | 2024-04-18 16:26 | XMS_ITS | Clinical Summary ---
Author Organization [facility] Address [address] [place] [address] Care Team Providers Care Outcomes Specialist Name Role Phone Unavailable Primary Care Provider Unavailabl e Social History Tobacco Use Types Packs/Day Years Used Date Smoking Tobacco: Never Assessed Sex and Gender Information Value Date Recorded Sex Assigned at Not on file Gender Identity Not on file Sexual Orientation Not on file Plan of Treatment Health Maintenance Due Date Last Done Comments Hepatitis C Virus Screening 1980 HIV Screening 1993 DTaP/Tdap/Td Vaccines (1 - Tdap) 1999 Hepatitis B Vaccines (1 of 3 - 19+ 3-dose series) 1999 COVID-19 Vaccine (2023-2 5 season) 2023 HPV Vaccines Aged Out No longer eligi ble based on patient's age to complete this topic Pneumococcal Vaccine: Pediat andres (0-5 Years) and At-Risk Patients (6 to 49 Years) Aged Out No longer eligible b ased on patient's age to complete this topic
--- OUTSIDE RECORDS SUMMARY | 2024-04-18 16:26 | XMS_ITS | Continuity of Care Document ---
Author Organization [place] - [facility], [facility] Barnhart [place] 3[address] floor Address [address] [place] [address] Care Team Providers Care Blueprint Machine Operator Name Role Phone ALY LEHMAN Primary Care Provider [phone] Assessment Encounter Date Assessment Date Assessment LastModified [...] and down stairs sitting standing. Problems ambulating. Pecv-rsm-xxccfkx medications are helping somewhat but not significantly. [...] noted. mild lateral ligamentous laxity. Negative Savita? s . Calf is supple and nontender. Neurovascularly intact [...] 314 3v left knee 2024 025 [email or web address] [facility], [address], [address], [place], [address], 04/05/2024 06:24:00 Medication Orders None recorded . Patient TargetsNo targets recorded. Patient InstructionsNo instructions recorded. Reason for Referral None Reported. Results Created Date Observation Date Name Description Value Unit Range Abnormal Flag Note LastModifiedBy Organization Detail LastModifiedTime 04/04/1904/04/2024 XR, knee, 3 view [email or web address] ?Encry pted=s hAaTro YD8dLq bEUv6g %2BXZw aYqtaq 0bqfl% 2Fg9IQ a4ajBk vP9nXo QUaueC m3YtLR FvZlgJ JJ8mAn HZtai3 3d4111 AC0Kqb HSFVaO nKiQtr MwF INTERFACE [facility] [address], [place], [address], 04/04/2024 16:31:42 04/18/19 25 04/17/2024 MRI, knee, w/o contr ast [facility] Access ion Number : [id number] Jerome villanueva Name: Angie Cleveland er Medica l Record Number : [id number] Date of : 1980 Date of Exam: 2024 Referr ing Physic brandon: Elliot Verdin [facility] ([facility]) [address], [address] [facility] [address] Exam: MR Knee (C-) CPT 25326 - Left Room Descri ption: [facility] Verio 3.0T MR Knee (C-) CPT 75762 CLINIC AL INDICA TION: Reason For Exam: M23.92 - 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 Problems Name Problem SNOMED Code Status Onset Date Resolution Date Notes Provider Name and Address Organization Details Recorded Time Pain of left knee joint 482418742502012 Active 2023 MARGOTH buitrago [place] - [facility] 4 09:30:29 Problem Notes None recorded. Medical Equipment None Reported. Allergies Allergen ID Allergen Name Allergen Category Reaction Reaction Severity Criticality Documentation Date Start Date Code Code System Note Provider Name and Address Organization Details Recorded Time 155374 Levaquin medicatio n rash moderate Not available 04/04/2024 53737 2 RxNorm Dc Bray SEAN buitrago - [facility] 5 16:21:52 Medications Name Sig Start Date Stop Date Status Note LastModified by Organization Details LastModified Time dhea 25mg capsule take 1 capsule by mouth daily active Not Available Not Available No t Available w-blossom crm Apply a pea sized amount [...] Updated DateTime 04/04/2024 162.56 cm 29.2 kg/m2 19672.7 g Dc Barnhart [facility] 04/04/2024 16:22:09 Social History Question Answer Notes LastModified by Organizat ion Details LastModified Time Tobacco Smoking Status Former Smoker SEAN Clifford [facility] 04/04/2024 16:21:54 How Many Times Per Week Do You Consume Alcohol? Less Than 1 Time Per Week [email or web address] Information not available 04/04/2024 Do You Or Have You Ever Used E-cigarettes Or Vape? Never Used Electronic Cigarettes Information not available 04/04/2024 When Did You Quit Smoking? 11-15yearssinc elastcigarette [email or web address] Information not available 04/04/2024 What Is Your Relationship Status? Other [email or web address] Information not available 04/04/2024 Do You Use Any Illicit Or Recreational Drugs? No [email or web address] Information not available 04/04/2024 Do You Or Have You Ever Used Any Other Forms Of Tobacco Or Nicotine? [email or web address] Information not available 04/04/2024 Sex: Unknown Functional Status None recorded. Mental Status None recorded. Family History Nothing Reported. Medical History Condition Response Hypertension Y Gynecological HistoryNo gynecological history recorded. Obstetrics History GPAL:G 0 P 0 0 0 0 Past Encounters Encounter ID Performer Location Encounter Start Date Encounter Closed Date Diagnosis/Indication Diagnosis SNOMED-CT Code Diagnosis ICD10 Code Diagnosis Note [id number] [facility] [address] [place] [address] 04/04/2024 16:18:55 04/04/2024 16:35:31 Pain of left knee joint 8031840707 78268 M25.562 Health Concerns Section Related Observation LastModified by Organization Detai ls LastModified Time None Recorded Concern Status LastModified by Organization Details LastModified Time None Recorded Payers Encounter Date Sequence Insurance Name Policy Number Policy Del Valle Covered Member ID Del Valle Member ID Guarantor Name 04/04/2024 1 [facility] [id number] Tessa Motley [id number] Tessa Motley OBGyn Episode No OBEpisode recorded.
--- OUTSIDE RECORDS SUMMARY | 2024-04-18 16:26 | XMS_ITS | Encounter Summary ---
Author Organization Former[facility] Address [address] [place] [address] Care Team Providers Care Manager Telemetry Name Role Phone Unavailable Primary Care Provider Unavailabl e Encounter Details Date Type Department Care Team (Late st Contact Info) Description 11/18/2016 Scanned Document [facility] [address] [address] Provider, Geovanna, [address] [place] [address] Social History Tobacco Use Types Packs/Day Years [...]
== END 2024-04-18 13:41 | disposition home or self-care (01) ==
LOC: HO.MAMMO 13:40
PROVIDERS: PCP Internal Medicine; Visit Provider Internal Medicine
DX: Z12.31 Encounter for screening mammogram for malignant neoplasm of breast (principal)
CPT/HCPCS: 77063; 77067